=== PATIENT | female | born 1965 | race Caucasian/White ===

== ENCOUNTER 2017-12-27 20:48 | Emergency (ER) | payer SELFPAY | END 2017-12-27 21:15 | disposition left against medical advice (07) | LOC: ER 20:48 | DX: S80.862A Insect bite (nonvenomous), left lower leg, initial encounter (principal); W57.XXXA Bitten or stung by nonvenomous insect and other nonvenomous arthropods, initial encounter; Y93.89 Activity, other specified; Y92.89 Other specified places as the place of occurrence of the external cause; Y99.8 Other external cause status ==